=== PATIENT | female | born 1995 | race Caucasian/White ===

== ENCOUNTER 2023-04-21 09:02 | Emergency (ER) | payer BC ==
[2023-04-21 09:56] LABS: BASOPHILS PERCENT AUTO 0.5 % (0.0-1.0); EOSINOPHILS ABSOLUTE AUTO 0.2 K/mm3 (0.0-0.4); EOSINOPHILS PERCENT AUTO 2.2 % (0.0-6.0); HEMOGLOBIN 12.7 gm/dl (12.0-16.0); IMMATURE GRAN ABSOLUTE AUTO 0.03 K/mm3 (0.00-0.05); IMMATURE GRAN PERCENT AUTO 0.4 % (0.0-0.4); LYMPHOCYTES ABSOLUTE AUTO 1.7 K/mm3 (1.0-4.8); LYMPHOCYTES PERCENT AUTO 21.3 % (24.0-44.0); MEAN CORPUSCULAR HEMOGLOBIN 30.2 pg (28.0-32.0); MEAN CORPUSCULAR HGB CONC 33.4 g/dl (32.0-36.0); MEAN CORPUSCULAR VOLUME 90.3 fl (83.0-99.0); MEAN PLATELET VOLUME 9.3 fl (9.4-12.3); MONOCYTES ABSOLUTE AUTO 0.6 K/mm3 (0.0-0.8); MONOCYTES PERCENT AUTO 7.5 % (0.0-8.0); NEUTROPHILS ABSOLUTE AUTO 5.4 K/mm3 (1.8-7.7); NEUTROPHILS PERCENT AUTO 68.1 % (41.0-71.0); PLATELET COUNT,PLT 320 K/mm3 (150-400); RED BLOOD CELL COUNT 4.21 M/mm3 (4.10-5.30); WHITE BLOOD CELL COUNT,WBC 7.88 K/mm3 (3.9-11.3)
== END 2023-04-21 11:14 | disposition home or self-care (01) ==
LOC: JD.ED 09:02 → EDBD 09:02 → JD.ED 11:14
DX: O03.9 Complete or unspecified spontaneous abortion without complication (principal); Z91.011 Allergy to milk products; Z88.2 Allergy status to sulfonamides; Z87.891 Personal history of nicotine dependence
CPT/HCPCS: 36415; 84702; 85025; 99284

== ENCOUNTER 2024-10-13 16:30 | Inpatient (IN) | payer BC ==
[~2024-10-13 16:30] MED LIST: Bupivacaine 0.25% 10 ML SDV ONE; Sodium Chloride 0.9% 10 ML SDV ONE
[2024-10-13] MEDS: Lactated Ringers 1,000 ML IV SCH (16:58)
[2024-10-13] MEDS ORDERED: Oxytocin/0.9 % Sodium Chloride 30 UNIT/500 ML BAG IV SCH ×2 (17:00)
[2024-10-13] MEDS ORDERED: Ondansetron 4 MG/2 ML SDV IVPUSH PRN ×2 (17:00→19:27)
[2024-10-13] MEDS ORDERED: Nalbuphine 10 MG/1 ML Vial IVPUSH PRN (17:00)
[2024-10-13] MEDS ORDERED: Lidocaine 1% 50 ML MDV INJECT PRN (17:00)
[2024-10-13] MEDS ORDERED: Sodium Chloride 0.9% 10 ML Syringe FLUSH PRN (17:00)
[2024-10-13 17:12] LABS: BASOPHILS PERCENT AUTO 0.2 % (0.0-1.0); EOSINOPHILS ABSOLUTE AUTO 0.1 K/mm3 (0.0-0.4); EOSINOPHILS PERCENT AUTO 0.3 % (0.0-6.0); HEMATOCRIT 35.3 % (37.0-47.0); HEMOGLOBIN 11.7 gm/dl (12.0-16.0); IMMATURE GRAN ABSOLUTE AUTO 0.12 K/mm3 (0.00-0.05); IMMATURE GRAN PERCENT AUTO 0.7 % (0.0-0.4); LYMPHOCYTES ABSOLUTE AUTO 3.3 K/mm3 (1.0-4.8); LYMPHOCYTES PERCENT AUTO 19.4 % (24.0-44.0); MEAN CORPUSCULAR HGB CONC 33.1 g/dl (32.0-36.0); MEAN CORPUSCULAR VOLUME 87.4 fl (83.0-99.0); MEAN PLATELET VOLUME 10.3 fl (9.4-12.3); MONOCYTES ABSOLUTE AUTO 1.2 K/mm3 (0.0-0.8); NEUTROPHILS ABSOLUTE AUTO 12.3 K/mm3 (1.8-7.7); NEUTROPHILS PERCENT AUTO 72.4 % (41.0-71.0); PLATELET COUNT,PLT 313 K/mm3 (150-400); RED BLOOD CELL COUNT 4.04 M/mm3 (4.10-5.30); WHITE BLOOD CELL COUNT,WBC 16.99 K/mm3 (3.9-11.3)
[2024-10-13] MEDS ORDERED: diphenhydrAMINE 50 MG/ML SDV IVPUSH PRN ×3 (17:38→22:21)
[2024-10-13] MEDS ORDERED: ePHEDrine 50 MG/ML SDV IVPUSH PRN ×2 (17:38→22:21)
[2024-10-13] MEDS: fentaNYL 100 MCG/2 ML SDV EPIDUR PRN (17:46)
[2024-10-13] MEDS: Bupivacaine/fentaNYL/NS 100 ML Bag EPIDUR PRN (17:49)
[2024-10-13] MEDS ORDERED: Lidocaine 2% with EPINEPHrine 1:200,000 20 ML SDV ONE (18:33)
[2024-10-13] MEDS ORDERED: Ketorolac 30 MG/ML SDV ONE (18:33)
[2024-10-13] MEDS ORDERED: Ondansetron 4 MG/2 ML SDV ONE (18:33)
[2024-10-13] MEDS ORDERED: Morphine PF 10 MG/10 ML SDV ONE (18:34)
[2024-10-13] MEDS ORDERED: Sodium Bicarbonate 8.4% 50 MEQ/50 ML SDV ONE (18:34)
[2024-10-13] MEDS ORDERED: ceFAZolin 2 GM Vial ONE (18:37)
[2024-10-13] MEDS: Metoclopramide 10 MG/2 ML SDV IVPUSH ONE (18:45)
[2024-10-13] MEDS: Citric Acid/Sodium Citrate Solution 30 ML Cup PO ONE (18:45)
[2024-10-13] MEDS ORDERED: Dexamethasone 4 MG/ML SDV ONE (18:51)
[2024-10-13] MEDS: Azithromycin 500 MG in Sodium Chloride 0.9% 250 ML IV ONE (18:51)
[2024-10-13] MEDS ORDERED: Phenylephrine 1% 10 MG/ML SDV ONE (19:13)
[2024-10-13] MEDS ORDERED: Meperidine 50 MG/ML Vial IVPUSH PRN (19:27)
[2024-10-13] MEDS ORDERED: fentaNYL 100 MCG/2 ML SDV IVPUSH PRN (19:27)
[2024-10-13] MEDS: Terbutaline 1 MG/ML SDV ONE (20:03)
[2024-10-13] MEDS ORDERED: Sodium Chloride 0.9% 10 ML Syringe FLUSH SCH (21:00)
[2024-10-13] MEDS ORDERED: Dextrose 5%-Lactated Ringers 1,000 ML IV SCH (22:21)
[2024-10-13] MEDS ORDERED: Naloxone 0.4 MG/ML SDV IVPUSH PRN (22:21)
[2024-10-14] MEDS: Ketorolac 30 MG/ML SDV IVPUSH SCH (00:22)
[2024-10-14 05:51] LABS: BASOPHILS PERCENT AUTO 0.1 % (0.0-1.0); HEMATOCRIT 29.8 % (37.0-47.0); HEMOGLOBIN 10.3 gm/dl (12.0-16.0); IMMATURE GRAN ABSOLUTE AUTO 0.17 K/mm3 (0.00-0.05); IMMATURE GRAN PERCENT AUTO 0.7 % (0.0-0.4); LYMPHOCYTES ABSOLUTE AUTO 1.3 K/mm3 (1.0-4.8); LYMPHOCYTES PERCENT AUTO 5.3 % (24.0-44.0); MEAN CORPUSCULAR HEMOGLOBIN 29.7 pg (28.0-32.0); MEAN CORPUSCULAR HGB CONC 34.6 g/dl (32.0-36.0); MEAN CORPUSCULAR VOLUME 85.9 fl (83.0-99.0); MEAN PLATELET VOLUME 10.3 fl (9.4-12.3); MONOCYTES ABSOLUTE AUTO 1.1 K/mm3 (0.0-0.8); MONOCYTES PERCENT AUTO 4.8 % (0.0-8.0); NEUTROPHILS PERCENT AUTO 89.1 % (41.0-71.0); PLATELET COUNT,PLT 278 K/mm3 (150-400); RED BLOOD CELL COUNT 3.47 M/mm3 (4.10-5.30); WHITE BLOOD CELL COUNT,WBC 23.57 K/mm3 (3.9-11.3)
[2024-10-14 06:09] LABS: SLIDE REVIEW ABNORMAL SMEAR
[2024-10-14] MEDS: Ondansetron 4 MG/2 ML SDV IVPUSH SCH (09:11)
[2024-10-14] MEDS ORDERED: Ondansetron 4 MG/2 ML SDV IVPUSH PRN (12:57)
[2024-10-14] MEDS: Ibuprofen 600 MG Tab PO SCH (18:53)
[2024-10-15] MEDS: Acetaminophen 325 MG Tab PO PRN (02:44)
[2024-10-15] MEDS ORDERED: Acetaminophen/oxyCODONE 325-5 MG Tab PO PRN (22:13)
[2024-10-15] MEDS: Acetaminophen/oxyCODONE 325-5 MG Tab PO PRN (22:39)
[2024-10-16] MEDS: Docusate Sodium 100 MG Cap PO PRN (00:22)
== END 2024-10-16 11:22 | disposition home or self-care (01) | DRG 540 ==
LOC: JD.OBCHECK 16:30 → JD.OB 16:31 → JD.OBCHECK 19:08 → JD.OB 19:09
PROVIDERS: ADMIT Obstetrics & Gynecology; ATTEND Obstetrics & Gynecology
PROC: 10D00Z1 Extraction of Products of Conception, Low, Open Approach (ICD-10-PCS; principal; 2024-10-13 18:30)
PROC: 4A0HXCZ Measurement of Products of Conception, Cardiac Rate, External Approach (ICD-10-PCS; principal; 2024-10-13 18:30)
DX: O24.420 Gestational diabetes mellitus in childbirth, diet controlled (principal); O99.344 Other mental disorders complicating childbirth; Z3A.39 39 weeks gestation of pregnancy; Z37.0 Single live birth; F84.0 Autistic disorder; O76 Abnormality in fetal heart rate and rhythm complicating labor and delivery; O45.93 Premature separation of placenta, unspecified, third trimester; Z88.2 Allergy status to sulfonamides; Z91.011 Allergy to milk products
CPT/HCPCS: 01967; 01968; 36415; 51701; 51702; 59025; 82947; 85025; 86592; 86850; 86900; 86901; 99140; A9270-GY; J0456; J0665; J0690; J1100; J1885; J2274; J2371; J2405; J2765; J3010; J3490; J7120

== ENCOUNTER 2024-10-24 21:33 | Emergency (ER) | payer BC ==
[2024-10-24 22:07] LABS: BASOPHILS PERCENT AUTO 0.4 % (0.0-1.0); EOSINOPHILS ABSOLUTE AUTO 0.1 K/mm3 (0.0-0.4); HEMATOCRIT 35.3 % (37.0-47.0); HEMOGLOBIN 11.8 gm/dl (12.0-16.0); IMMATURE GRAN ABSOLUTE AUTO 0.05 K/mm3 (0.00-0.05); IMMATURE GRAN PERCENT AUTO 0.4 % (0.0-0.4); LYMPHOCYTES ABSOLUTE AUTO 2.4 K/mm3 (1.0-4.8); LYMPHOCYTES PERCENT AUTO 21.4 % (24.0-44.0); MEAN CORPUSCULAR HGB CONC 33.4 g/dl (32.0-36.0); MEAN CORPUSCULAR VOLUME 86.7 fl (83.0-99.0); MEAN PLATELET VOLUME 9.1 fl (9.4-12.3); MONOCYTES ABSOLUTE AUTO 0.6 K/mm3 (0.0-0.8); MONOCYTES PERCENT AUTO 5.5 % (0.0-8.0); NEUTROPHILS ABSOLUTE AUTO 8.1 K/mm3 (1.8-7.7); NEUTROPHILS PERCENT AUTO 71.3 % (41.0-71.0); PLATELET COUNT,PLT 437 K/mm3 (150-400); RED BLOOD CELL COUNT 4.07 M/mm3 (4.10-5.30); WHITE BLOOD CELL COUNT,WBC 11.39 K/mm3 (3.9-11.3)
[2024-10-24 22:24] LABS: A/G RATIO 0.8 (1-2); ALBUMIN 3.1 g/dl (3.4-5.0); ANION GAP 14.8 (5-15); BILIRUBIN TOTAL 0.3 mg/dL (0.2-1.0); C-REACTIVE PROTEIN 0.67 mg/dL (<0.30); CALCIUM 8.8 mg/dL (8.5-10.1); CREATININE 0.8 mg/dL (0.55-1.02); EST CRCL DRUG DOSING (CG) 89.6 mL/min; POTASSIUM,K 3.8 mEq/L (3.5-5.1); PROTEIN TOTAL,TP 7.2 g/dl (6.4-8.2)
[2024-10-24] MEDS: Ondansetron 4 MG/2 ML SDV IVPUSH ONE (22:27)
[2024-10-24] MEDS: Sodium Chloride 0.9% 1,000 ML IV SCH (22:28)
[2024-10-24] MEDS: Sodium Chloride 0.9% 10 ML Syringe FLUSH PRN (22:28)
[2024-10-24 22:38] LABS: APPEARANCE,URINE CLEAR (Clear); BILIRUBIN,URINE NEGATIVE (Negative); COLOR,URINE LIGHT YELLOW (Yellow); GLUCOSE,URINE NEGATIVE (Negative); KETONES,URINE NEGATIVE (Negative); LEUKOCYTE ESTERASE,URINE 2+ (Negative); NITRITE,URINE NEGATIVE (Negative); OCCULT BLOOD,URINE 2+ (Negative); PH,URINE 6.5 (5.0-8.0); PROTEIN,URINE NEGATIVE (Negative); UROBILINOGEN,URINE 0.2 (0.2-1.0)
[2024-10-24 22:53] LABS: BACTERIA,URINE RARE /hpf (FEW); EPITHELIAL CELLS,URINE 0-5 /hpf (0-5); MUCUS,URINE NOT SEEN /hpf (FEW)
== END 2024-10-25 01:06 | disposition home or self-care (01) ==
LOC: JD.ED 21:33
DX: R10.84 Generalized abdominal pain (principal); Z79.82 Long term (current) use of aspirin; Z79.1 Long term (current) use of non-steroidal anti-inflammatories (NSAID); Z88.2 Allergy status to sulfonamides; Z91.011 Allergy to milk products
CPT/HCPCS: 36415; 74018; 76705; 80053; 81001; 83605; 85025; 86140; 87086; 87428; 96361; 96374; 99284; J2405; J7030; 99283